=== PATIENT | male | born 1980 | race Hispanic/Latino ===

== ENCOUNTER 2020-08-15 08:09 | Emergency (ER) | payer OTHER ==
[~2020-08-15] VITALS: Ht 165.1 cm; Wt 74.8 kg
[2020-08-15] MEDS ORDERED: HYDROCODON-ACE1 EA10 PO (10:04)
== END 2020-08-15 10:28 | disposition home or self-care (01) ==
LOC: ED 08:09
DX: S82.51XA Displaced fracture of medial malleolus of right tibia, initial encounter for closed fracture (principal); S82.831A Other fracture of upper and lower end of right fibula, initial encounter for closed fracture; V86.99XA Unspecified occupant of other special all-terrain or other off-road motor vehicle injured in nontraffic accident, initial encounter
CPT/HCPCS: 29515; 73590; 73610; 99284-25